=== PATIENT | male | born 1955 | race Caucasian/White ===

== ENCOUNTER 2018-12-24 13:40 | Emergency (ER) | payer BC, SELFPAY ==
[2018-12-24 13:42] VITALS: BP 133/72; PULSE 54; RESP 18; TEMP 36.8; O2SAT 97; BMI 23.6
--- NOTE | 2018-12-24 13:59 | ED.VISSUMM ---
- ER Visit Summary Date of Service: 12/24/18 Chief Complaint: Right long and ring finger distal tip amputation History of Present Illness: The patient is a 63 M [id number]. Tetanus up-to-date. She was cleaning his lawnmower while it was on. And his right hand slipped and got caught on the mower blades. This occurred within the last hour. He states his tetanus is up-to-date. He denies any other injuries. Physical Examination: Older male no acute distress vital signs are stable and afebrile. HEENT exam unremarkable. Lungs clear to auscultation bilaterally. Heart regular rhythm no murmur. Patient moving all 4 extremities. Neurovascularly intact. The distal fingertip of both the right long and ring finger has been amputated. The finger is neurovascular intact. Currently there is no active bleeding. No pulsatile bleeding. No bruising. He has full flexion-extension all digits of the right hand. The joints are intact. He has normal touch sensation. These are avulsion loss of tissue amputation injuries and do not like there is much to repair so at this time. Test Results: Right long and ring finger x-rays shows no fracture and good soft tissue coverage of the bone. No foreign bodies. Read both by myself and the radiologist. Emergency Department Course and Treatment: Tetanus is up-to-date. Both wounds will be cleaned and dressed. Repeat exam patient doing well at 1455. Really nothing to do so at this time. Wound to be cleaned and dressed. He was instructed on wound care. Treatment Plan: Wound care. Disposition: Discharge Impression: Amputation of both the right ring and long finger distal tips. This note was generated with [employer] dictation software. It may contain incorrect words, spelling, and punctuation that were not noted in review of the chart prior to signing ED Disposition - Plan for ED Patient: Disposition: Home or Assisted Living Instructions: FINGER TIP AMPUTATION, Open Treatment Referrals: Rojas Mcclendon DO [Primary Care Provider] - As Needed Additional Instructions: Keep both wounds clean. Apply antibiotic ointment. Watch for any signs of infection. Both of these wounds should heal and long-term look reasonably good. It will take weeks or months.
--- NOTE | 2018-12-24 14:02 | ED.DEP ---
ED Disposition - Plan for ED Patient: Disposition: Home or Assisted Living Instructions: FINGER TIP AMPUTATION, Open Treatment Referrals: Rojas Mcclendon DO [Primary Care Provider] - As Needed Additional Instructions: Keep both wounds clean. Apply antibiotic ointment. Watch for any signs of infection. Both of these wounds should heal and long-term look reasonably good. It will take weeks or months.
[2018-12-24] MEDS: HYDROcodone Bitartrate/Apap 5/325 Tablet PO (14:12)
--- NOTE | 2018-12-24 14:30 | RAD_ITS ---
STUDY: X-RAY - RIGHT HAND, ATTENTION FINGER REASON FOR EXAM: Male, 63 years old. TECHNIQUE: view(s) of the finger were obtained. COMPARISON: None. FINDINGS: There is tiny cystic area noted in the middle phalanx of the ring finger laterally of questionable etiology no fracture seen the joint spaces are preserved Electronically Signed: Maureen Swenson, at 14:59 EDT Tel , Service support , RAD/Finger(s) Min 2 Views
[2018-12-24 15:29] VITALS: RESP 18
== END 2018-12-24 15:31 | disposition home or self-care (01) ==
PROVIDERS: Emergency Provider Emergency Medicine; Family Provider Preventive Medicine Occupational Medicine; PCP Preventive Medicine Occupational Medicine
DX: S61.314A Laceration without foreign body of right ring finger with damage to nail, initial encounter (principal); I10 Essential (primary) hypertension; Z79.899 Other long term (current) drug therapy; W45.8XXA Other foreign body or object entering through skin, initial encounter; Y93.H2 Activity, gardening and landscaping; Y92.007 Garden or yard of unspecified non-institutional (private) residence as the place of occurrence of the external cause; Y99.8 Other external cause status
CPT/HCPCS: 73140; 99283

== ENCOUNTER → 2019-05-02 | Outpatient (CLI) | payer BC, SELFPAY ==
[2019-02-15 15:33] VITALS: BMI 23.6
--- NOTE | 2019-05-02 15:44 | EKG12_ITS ---
Test Reason : PREOP Blood Pressure : / mmHG Vent. Rate : 061 BPM Atrial Rate : 061 BPM P-R Int : 150 ms QRS Dur : 098 ms QT Int : 440 ms P-R-T Axes : 054 043 040 degrees QTc Int : 442 ms Normal sinus rhythm Normal ECG Confirmed by FABIO UPTON ([id number]), editorial writer NURYS CAMERON ([id number]) on 05/08/2019 9:15:42 AM Referred By: Kian Calderón Confirmed By:FABIO UTPON
[2019-05-02 17:13] LABS: Hemoglobin 15.3 g/dL (13.0-16.5); Mean Corp Hgb Conc 33.3 g/dL (32-36); Mean Corpuscular Hgb 30.5 pg (27.0-32.0); Mean Corpuscular Volume 91.6 fL (80-94); Mean Platelet Vol. 9.7 fl (6.2-12.0); Platelet Count 208 K/mm3 (150-450); RBC Distribution Width CV 12.1 % (11.6-14.6); RBC Distribution Width SD 40.4 fl (35.1-43.9); Red Blood Count 5.02 M/mm3 (4.6-6.2); White Blood Count 5.4 K/mm3 (4.4-11.0)
[2019-05-02 17:23] LABS: Anion Gap 6 (5-15); BUN 13 mg/dL (7-18); BUN/Creat Ratio 11.9 RATIO (10-20); Calcium,Total 8.6 mg/dL (8.5-10.1); Chloride 105 mmol/L (98-107); Creatinine, Serum 1.09 mg/dL (0.70-1.30); EST Glomerular Filtration Rate 73 mL/min (>60); Est Glom Filt Rate - Afr Amer 88 mL/min (>60); Glucose 88 mg/dL (74-106); Sodium Level 140 mmol/L (136-145)
== END | disposition home or self-care (01) ==
PROVIDERS: Family Provider Preventive Medicine Occupational Medicine; PCP Preventive Medicine Occupational Medicine; Referring Provider Physician Assistant; Visit Provider Physician Assistant
DX: Z01.810 Encounter for preprocedural cardiovascular examination (principal); E11.9 Type 2 diabetes mellitus without complications
CPT/HCPCS: 36415; 80048; 85027; 93005

== ENCOUNTER 2020-02-21 09:07 | Observation (INO) | payer BC, SELFPAY ==
[2019-02-15 15:33] VITALS: BMI 23.6
[2020-02-21] VITALS (10 sets, daily range): BP systolic 138–184; BP diastolic 70–107; PULSE 48–58; RESP 14–18; TEMP 36.1–36.7; O2SAT 96–100; BMI 25.0; BMI 24.1; BMI 24.2
--- NOTE | 2020-02-21 09:28 | EKG12_ITS ---
Test Reason : Blood Pressure : / mmHG Vent. Rate : 061 BPM Atrial Rate : 061 BPM P-R Int : 156 ms QRS Dur : 094 ms QT Int : 430 ms P-R-T Axes : 055 013 041 degrees QTc Int : 432 ms Sinus rhythm with Premature atrial complexes Otherwise normal ECG Confirmed by FABIO UPTON ([id number]), editor & co founder INGRID LOTT ([id number]) on 02/26/2020 9:37:43 AM Referred By: LARS Confirmed By:FABIO UPTON
--- NOTE | 2020-02-21 09:33 | RAD_ITS ---
STUDY: X-RAY CHEST REASON FOR EXAM: Male, 64 years old. chest pain since 8 am TECHNIQUE: Single AP portable view of the chest. COMPARISON: None. FINDINGS: The lungs are clear and expanded. There is no demonstrated pleural abnormality. Normal size heart. Normal mediastinum and jon. Normal visualized pulmonary arteries. Normal visualized aortic arch and descending thoracic aorta. Normal visualized thoracic spine. There is degenerative osteoarthritis of the bilateral shoulders. There is no demonstrated abnormality of the visualized soft tissue structures of the upper abdomen. RAD/Chest 1 View (Portable) IMPRESSION: Degenerative changes, as described above. No demonstrated acute cardiopulmonary process. Electronically Signed: Stacey Ugalde, at 9:49 EDT Tel , Service support ,
[2020-02-21 09:44] LABS: Absolute Neutrophil Count 3.1 X10^3/uL (2.0-7.7); Basophil# 0.04 X10^3/uL; Basophil% 0.6 % (0-1); Eosinophil# 0.14 X10^3/uL; Eosinophils% 2.2 % (0-5); Hematocrit 45.3 % (40-54); Hemoglobin 15.1 g/dL (13.0-16.5); Lymphocyte % 40.4 % (19-41); Mean Corp Hgb Conc 33.3 g/dL (32-36); Mean Corpuscular Hgb 30.9 pg (27.0-32.0); Mean Corpuscular Volume 92.8 fL (80-94); Mean Platelet Vol. 9.6 fl (6.2-12.0); Monocyte# 0.54 X10^3/uL; Monocyte% 8.4 % (0-10); NRBC Flagged by Analyzer 0 % (0-5); Neutrophil # 3.09 X10^3/uL (2.7-7.7); Neutrophil % 48.1 % (47-70); Platelet Count 212 K/mm3 (150-450); RBC Distribution Width CV 12.6 % (11.6-14.6); RBC Distribution Width SD 42.9 fl (35.1-43.9); Red Blood Count 4.88 M/mm3 (4.6-6.2); White Blood Count 6.4 K/mm3 (4.4-11.0)
[2020-02-21 09:49] LABS: Anion Gap 2 (5-15); BUN 17 mg/dL (7-18); Calcium,Total 8.9 mg/dL (8.5-10.1); Chloride 103 mmol/L (98-107); Creatinine, Serum 1.13 mg/dL (0.70-1.30); EST Glomerular Filtration Rate 70 mL/min (>60); Est Glom Filt Rate - Afr Amer 84 mL/min (>60); Estimated Creatinine Clearance 66.91 ml/min; Glucose 98 mg/dL (74-106); Potassium 3.7 mmol/L (3.5-5.1); Sodium Level 137 mmol/L (136-145)
[2020-02-21] MEDS: Aspirin 81 MG TAB.CHEW 324 MG PO (10:21)
--- NOTE | 2020-02-21 10:29 | ED.DCSUM_ITS ---
- ER Visit Summary Date of Service: 02/21/20 Chief Complaint: Chest pain History of Present Illness: The patient is a 64 M who presents with chest pain that began this morning approximately 1 hour prior to arrival. Patient states the pain is over the right parasternal area and radiates into his back, neck, and jaw. Patient states the pain waxes and wanes. Patient describes the pain is sharp. Patient states nothing makes it better or worse. Patient denies any nausea or vomiting. Patient denies any diaphoresis. Patient denies any shortness of breath or cough. Patient's cardiac risk factors include hypertension. Patient has a family history of father and brother with coronary artery disease but this started in their 60s. Physical Examination: Vital signs are stable except for an elevated blood pressure of 184/107. Patient is afebrile. Patient is in no acute distress. Oral mucosa is pink and moist. Neck is supple. Trachea is midline. There is no JVD noted. Heart was regular rate and rhythm. Lungs are clear and equal bilaterally. Abdomen is soft. Bowel sounds are normal. There is no tenderness. There is no rebound or guarding noted. Skin is warm dry. Cranial nerves II through XII are intact. There are no focal motor or sensory deficits noted. Extremities are intact. There is no calf tenderness or edema. Test Results: EKG shows a normal sinus rhythm with occasional PACs with a rate of 61. There are no acute ST or T wave changes. Portable chest x-ray was obtained. There is no acute cardiopulmonary process. This was interpreted by the radiologist and reviewed by myself. CBC, basic metabolic profile, and troponin were obtained were all essentially within normal limits. Emergency Department Course and Treatment: Patient was given aspirin here. Patient was pain-free here in the emergency department and did not require nitroglycerin. Patient was feeling better. However given the patient's history and his HEART score of 4, I feel the patient should be admitted for further evaluation. Patient states his last stress test was several years ago. Patient understands and is agreeable with the plan. All questions were answered. Case was discussed with the hospitalist. She will admit the patient for observation. Disposition: Admit to hospital Impression: Chest pain This note was generated with [employer] dictation software. It may contain incorrect words, spelling, and punctuation that were not noted in review of the chart prior to signing ED Disposition - Plan for ED Patient: Disposition: Acute Care Hospital [facility] Diagnosis: Chest pain Referrals: Rojas Mcclendon DO [Primary Care Provider] -
--- NOTE | 2020-02-21 11:02 | NURSING ---
DR DANG FOR DR SOLO
--- NOTE | 2020-02-21 11:07 | NURSING ---
PCU CP PAINTSIL
--- NOTE | 2020-02-21 12:28 | EKG12_ITS ---
Test Reason : CP Blood Pressure : / mmHG Vent. Rate : 052 BPM Atrial Rate : 052 BPM P-R Int : 162 ms QRS Dur : 092 ms QT Int : 450 ms P-R-T Axes : 040 015 041 degrees QTc Int : 418 ms Sinus bradycardia Otherwise normal ECG Confirmed by SHELTON KAUR, TRAVIS ([id number]), film editor NURYS CAMERON ([id number]) on 02/28/2020 1:17:25 PM Referred By: RHETT Confirmed By:TRAVIS PEOPLES MD
--- NOTE | 2020-02-21 12:32 | PCM.HP.STD ---
<Odalys Pierce - Last Filed: 02/21/20 12:47> Problem List (1) Chest pain Status: Acute (2) Contact with powered lawnmower as cause of accidental injury at home as place of occurrence Status: Resolved (3) Open wound of right middle finger with damage to nail Status: Resolved (4) Open wound of right ring finger with damage to nail Status: Resolved (5) Subcutaneous mass of back Status: Resolved Comment: mid back in thoracic area History of Present Illness Date of Admission: 02/21/20 Chief Complaint: Chest pain The patient is a 64 year old M who presents emergency room due to chest pain. Patient reports he was at work this morning sitting at his desk when he developed chest pressure which radiated to his back and the right side of his jaw. He states he felt weak. Denies palpitations, lightheadedness, diaphoresis, nausea, shortness of breath. He states he has never had similar symptoms to this in the past. Episode lasted for 2 hours in total and waxed and waned. Patient states his chest pain resolved in the ER after receiving nitro and aspirin. Patient states he is active at baseline and denies any recent chest pain with exertion. He has a past medical history of hypertension. Past Medical History Medical History: Medical History (Last Reviewed 02/15/19 @ 15:32 by Felecia Tse) Asthma J45.909 Kidney stones N20.0 Seasonal allergies J30.2 High blood pressure I10 Allergies CONTRAST DYE Adverse Reaction (Uncoded 02/21/20 09:14) ADVERSE REACTION Home Medications: Ambulatory Orders Medication Instructions Recorded Lisinopril [Zestril] 40 mg PO DAILY 07/25/16 Bisoprolol/Hydrochlorothiazide 1 tab PO DAILY 12/24/18 [Bisoprolol-Hctz 2.5-6.25 mg Tb] Surgical History: - - Right elbow surgery Psychiatric History: No pertinent psych hx Lives: Alone Smoking Status: Never smoker Alcohol: None Drugs: None - *Family History Maternal Family History: Family History (Last Reviewed 02/21/20 @ 12:42 by COLTEN Chen) Mother Anemia CVA (cerebral vascular accident) Father Diabetes Heart disease High cholesterol CVA (cerebral vascular accident) Paternal Family History: Family History (Last Reviewed 02/21/20 @ 12:42 by Odalys Stan, RADIO RIGGER-C) Mother Anemia CVA (cerebral vascular accident) Father Diabetes Heart disease High cholesterol CVA (cerebral vascular accident) Review of Systems Constitutional: Denies: Chills, Fever, Weight Change HEENT: Denies: Head Aches, Sinus Congestion, Sinus Drainage Cardiovascular: Reports: Chest Pain Respiratory: Denies: Cough, Shortness of breath at rest, Sputum production Gastrointestinal: Denies: Abdominal Pain, Nausea, Vomiting Genitourinary: Denies: Dysuria Musculoskeletal: Denies: Joint Pain, Joint Tenderness Skin: Denies: Rash, Wounds Neurological: Denies: Numbness, Tingling, Focal weakness Psychiatric: Denies: Anxiety, Depression, Homicidal Ideations, Suicidal Ideations Hematologic/ Lymphatic: Denies: Easy Bruising, Easy Bleeding VTE Information - Inpt Only VTE Present on Admission: No VTE Mechan Device Prophylaxis: None VTE Pharm Prophylaxis ordered?: No Reason prophylaxis not ordered:: Treatment Not Indicated Patient Problems: Active and Suspected Problems (Last Reviewed 02/15/19 @ 15:32 by Felecia Tse) Chest pain (Acute) - Physical Exam Vitals/I&O's: Vital Signs Temp Pulse Resp BP Pulse Ox 98.1 F 52 L 14 144/97 H 97 02/21/20 12:18 02/21/20 12:18 02/21/20 12:18 02/21/20 12:18 02/21/20 12:18 Oxygen Delivery Method Room Air Weight: 163 lb 2.273 oz Body Mass Index (BMI) 24.1 General: Alert, Oriented x3, Cooperative HEENT: Atraumatic, PERRLA, EOMI, Normocephalic Neck: Supple, No JVD, Negative Carotid Bruits Lungs: Clear to auscultation, Normal air movement Cardiovascular: Regular rate, No murmurs Abdomen: Bowel Sounds Present, Soft, Non Tender Extremities: No edema, Capillary Refill Less than 3 Seconds Skin: No rashes, No breakdown Musculoskeletal: No Tenderness to Palpation of Joints or Extremities Neurological: Cranial nerves II-XII grossly intact, Neuro grossly intact Psych/Mental Status: Normal Affect, Appropriate Laboratory Results 02/21/20 09:15: WBC 6.4, RBC 4.88, Hgb 15.1, Hct 45.3, MCV 92.8, MCH 30.9, MCHC 33.3, RDW Std Deviation 42.9, RDW Coeff of Samson 12.6, Plt Count 212, MPV 9.6, Immature Gran % (Auto) 0.300, Neut % (Auto) 48.1, Lymph % (Auto) 40.4, [place] % (Auto) 8.4, Eos % (Auto) 2.2, Baso % (Auto) 0.6, Absolute Neuts (auto) 3.1, Absolute Lymphs (auto) 2.60, Nucleated RBC % 0 02/21/20 09:15: Sodium 137, Potassium 3.7, Chloride 103, Carbon Dioxide 32.0, Anion Gap 2 L, BUN 17, Creatinine 1.13, Estim Creat Clear Calc 66.91, Est GFR (MDRD) Af Amer 84, Est GFR (MDRD) Non-Af 70, BUN/Creatinine Ratio 15.0, Glucose 98, Calcium 8.9, Troponin I < 0.015 Current Medications Bisoprolol Fumarate (Zebeta) 2.5 mg PO DAILY [facility] Hydrochlorothiazide () 6.25 mg PO DAILY [facility] Lisinopril (Zestril) 40 mg PO DAILY [facility] Nitroglycerin (Nitrostat) 0.4 mg SUBLINGUAL Q5M PRN PRN Reason: CARDIAC/CHEST PAIN Sodium Chloride () 10 - 40 ml IV UD PRN PRN Reason: SALINE FLUSH Assessment/Plan All Active Problems (Last Reviewed 02/15/19 @ 15:32 by Felecia Tse) Chest pain (Acute) Contact with powered lawnmower as cause of accidental injury at home as place of occurrence (Resolved) Open wound of right middle finger with damage to nail (Resolved) Open wound of right ring finger with damage to nail (Resolved) Subcutaneous mass of back (Resolved) 1. Chest pain-EKG without ST-T changes. Initial troponin negative. Trend enzymes. Check a lipid profile in a.m. Continue baby aspirin. Stress test in a.m. 2. Hypertension-elevated on admission, now improved. Continue lisinopril, bisoprolol/HCTZ regimen. DVT prophylaxis-not indicated, low risk. This patient was seen by COLTEN Chen under the supervision of Dr. Gaspar. <Monik Gaspar - Last Filed: 02/21/20 16:39> History of Present Illness The patient is a 64 year old M [] Past Medical History Medical History: Medical History (Last Reviewed 02/15/19 @ 15:32 by Felecia Tse) Asthma J45.909 Kidney stones N20.0 Seasonal allergies J30.2 High blood pressure I10 Allergies CONTRAST DYE Adverse Reaction (Uncoded 02/21/20 09:14) ADVERSE REACTION - *Family History Maternal Family History: Family History (Last Reviewed 02/21/20 @ 12:42 by COLTEN Chen) Mother Anemia CVA (cerebral vascular accident) Father Diabetes Heart disease High cholesterol CVA (cerebral vascular accident) Paternal Family History: Family History (Last Reviewed 02/21/20 @ 12:42 by COLTEN Chen) Mother Anemia CVA (cerebral vascular accident) Father Diabetes Heart disease High cholesterol CVA (cerebral vascular accident) - Physical Exam Vitals/I&O's: Vital Signs Temp Pulse Resp BP Pulse Ox 98.1 F 54 L 14 144/97 H 97 02/21/20 12:18 02/21/20 12:52 02/21/20 12:18 02/21/20 12:18 02/21/20 12:18 Oxygen Delivery Method Room Air Weight: 74 kg Body Mass Index (BMI) 24.1 Laboratory Results 02/21/20 09:15: WBC 6.4, RBC 4.88, Hgb 15.1, Hct 45.3, MCV 92.8, MCH 30.9, MCHC 33.3, RDW Std Deviation 42.9, RDW Coeff of Samson 12.6, Plt Count 212, MPV 9.6, Immature Gran % (Auto) 0.300, Neut % (Auto) 48.1, Lymph % (Auto) 40.4, [place] % (Auto) 8.4, Eos % (Auto) 2.2, Baso % (Auto) 0.6, Absolute Neuts (auto) 3.1, Absolute Lymphs (auto) 2.60, Nucleated RBC % 0 02/21/20 09:15: Sodium 137, Potassium 3.7, Chloride 103, Carbon Dioxide 32.0, Anion Gap 2 L, BUN 17, Creatinine 1.13, Estim Creat Clear Calc 66.91, Est GFR (MDRD) Af Amer 84, Est GFR (MDRD) Non-Af 70, BUN/Creatinine Ratio 15.0, Glucose 98, Calcium 8.9, Troponin I < 0.015 02/21/20 12:29: Troponin I < 0.015 02/21/20 15:40: Troponin I Pending Current Medications Bisoprolol Fumarate (Zebeta) 2.5 mg PO DAILY [facility] Hydrochlorothiazide () 6.25 mg PO DAILY [facility] Lisinopril (Zestril) 40 mg PO DAILY [facility] Nitroglycerin (Nitrostat) 0.4 mg SUBLINGUAL Q5M PRN PRN Reason: CARDIAC/CHEST PAIN Sodium Chloride () 10 - 40 ml IV UD PRN PRN Reason: SALINE FLUSH Assessment/Plan This patient was seen in conjunction with Odalys Pierce NP. I have independently interviewed and examined the patient and reviewed pertinent historical, laboratory, and other data. Please refer to her note for patient's presentation, findings, and recommendations. 64-year-old male with past medical history of hypertension who comes in with complaints of substernal chest pain that radiates to the right side of the neck. Patient was at work when he had substernal chest pain. Denies having any chest pain in the past. This lasted for about 2 hours. This was described as dull. It was not associated with dizziness or diaphoresis or nausea or vomiting. Vitals in the ED were stable. Vitals were stable. Troponins were negative. EKG showed no acute ST-T changes. Physical Exam: Gen: Comfortable, not pale, not jaundiced, alert oriented x3 CVS:HS I +II, regular, no murmurs RESP: CTA GI: BS present and normal, nontender, no palpable organs EXT:No edema Labs reviewed: ASSESSMENT: 1. Chest pain 2. Hypertension Meds reviewed Plan: We will trend troponins, Check lipid profile, HbA1c in a.m. Stress test in a.m. Continue on lisinopril, bisoprolol and hydrochlorothiazide OBSV E&M: 89649 Initial observation care L3
[2020-02-22 02:54] VITALS: PULSE 46
[2020-02-22 05:00] VITALS: BP 140/76; PULSE 54; RESP 16; TEMP 37.2; O2SAT 96
[2020-02-22] MEDS: Lisinopril 40 MG Tablet PO (05:09)
[2020-02-22 07:00] VITALS: PULSE 53
[2020-02-22 07:01] LABS: Cholesterol 239 mg/dL (200); High Density Lipoprotein 48 mg/dL; Triglycerides 110 mg/dL; Very Low Density Lipoprotein 22 mg/dL (5-40)
--- NOTE | 2020-02-22 08:50 | PCM.PN.HOSP ---
Patient Problems: Active and Suspected Problems (Last Reviewed 02/15/19 @ 15:32 by Felecia Tse) Chest pain (Acute) Vitals/I&O's: Vital Signs Temp Pulse Resp BP Pulse Ox 98.9 F 53 L 16 140/76 H 96 02/22/20 05:00 02/22/20 07:00 02/22/20 05:00 02/22/20 05:00 02/22/20 05:00 Oxygen Delivery Method Room Air Weight: 74 kg Body Mass Index (BMI) 24.1 Intake and Output for Last 24 Hours 02/20/20 02/21/20 02/22/20 23:59 23:59 23:59 Intake Total 480 / 480 Balance 480 / 480 Laboratory Results 02/21/20 09:15: WBC 6.4, RBC 4.88, Hgb 15.1, Hct 45.3, MCV 92.8, MCH 30.9, MCHC 33.3, RDW Std Deviation 42.9, RDW Coeff of Samson 12.6, Plt Count 212, MPV 9.6, Immature Gran % (Auto) 0.300, Neut % (Auto) 48.1, Lymph % (Auto) 40.4, Stark % (Auto) 8.4, Eos % (Auto) 2.2, Baso % (Auto) 0.6, Absolute Neuts (auto) 3.1, Absolute Lymphs (auto) 2.60, Nucleated RBC % 0 02/21/20 09:15: Sodium 137, Potassium 3.7, Chloride 103, Carbon Dioxide 32.0, Anion Gap 2 L, BUN 17, Creatinine 1.13, Estim Creat Clear Calc 66.91, Est GFR (MDRD) Af Amer 84, Est GFR (MDRD) Non-Af 70, BUN/Creatinine Ratio 15.0, Glucose 98, Calcium 8.9, Troponin I < 0.015 02/21/20 12:29: Troponin I < 0.015 02/21/20 15:40: Troponin I < 0.015 02/22/20 06:00: Triglycerides 110, Cholesterol 239 H, LDL Cholesterol 169 H, VLDL Cholesterol 22, HDL Cholesterol 48 Current Medications Bisoprolol Fumarate (Zebeta) 2.5 mg PO DAILY [facility] Hydrochlorothiazide () 6.25 mg PO DAILY [facility] Lisinopril (Zestril) 40 mg PO DAILY [facility] Last Admin: 02/22/20 05:09 Dose: 40 mg Documented by: Nitroglycerin (Nitrostat) 0.4 mg SUBLINGUAL Q5M PRN PRN Reason: CARDIAC/CHEST PAIN Sodium Chloride () 10 - 40 ml IV UD PRN PRN Reason: SALINE FLUSH STROKE Vital Signs/Narrative: Vital Signs Temp Pulse Resp BP Pulse Ox 02/22/20 07:00 53 L 02/22/20 05:00 98.9 F 54 L 16 140/76 H 96 Medical Necessity - Tobacco Use Smoking Status: Never smoker Assessment/Plan All Active Problems (Last Reviewed 02/15/19 @ 15:32 by Felecia Tse) Chest pain (Acute) Contact with powered lawnmower as cause of accidental injury at home as place of occurrence (Resolved) Open wound of right middle finger with damage to nail (Resolved) Open wound of right ring finger with damage to nail (Resolved) Subcutaneous mass of back (Resolved) This patient was seen in conjunction with Odalys Pierce NP. I have independently interviewed and examined the patient and reviewed pertinent historical, laboratory, and other data. Please refer to her note for patient's presentation, findings, and recommendations. 64-year-old male with past medical history of hypertension who comes in with complaints of substernal chest pain that radiates to the right side of the neck. Patient was at work when he had substernal chest pain. Denies having any chest pain in the past. This lasted for about 2 hours. This was described as dull. It was not associated with dizziness or diaphoresis or nausea or vomiting. Vitals in the ED were stable. Vitals were stable. Troponins were negative. EKG showed no acute ST-T changes. Physical Exam: Gen: Comfortable, not pale, not jaundiced, alert oriented x3 CVS:HS I +II, regular, no murmurs RESP: CTA GI: BS present and normal, nontender, no palpable organs EXT:No edema Labs reviewed: ASSESSMENT: 1. Chest pain 2. Hypertension Meds reviewed Plan: We will trend troponins, Check lipid profile, HbA1c in a.m. Stress test in a.m. Continue on lisinopril, bisoprolol and hydrochlorothiazide Inpatient E&M: 52773 Subs Hosp L2
[2020-02-22 09:23] LABS: Hemoglobin A1c 5.9 % (3.8-5.6)
[2020-02-22 09:53] VITALS: BP 124/85; PULSE 60; RESP 16; TEMP 36.2; O2SAT 98
[2020-02-22] MEDS: Bisoprolol Fumarate 5 MG Tablet 2.5 MG PO (10:01)
[2020-02-22] MEDS: hydroCHLOROthiazide 6.25mg TAB 6.25 MG PO (10:01)
--- NOTE | 2020-02-22 12:38 | STRESSREP_ITS ---
Stress Test Report Date: 02/22/2020 Procedure: Exercise tolerance test/imaging study Indications: Chest pain Consent: Per the patient Procedure: The patient exercised on a Sabino protocol for 9 minutes achieving a peak heart rate of 142 bpm (90 % predicted maximal heart rate) with a peak blood pressure 174/88 mmHg and a peak MET capacity of 10.1 METs. The baseline ECG demonstrated normal sinus rhythm. The peak exercise ECG demonstrated sinus tachycardia with no significant ST-T changes. EKG during recovery revealed no significant ischemic changes [There were no significant cardiac dysrhythmias pretest, during exercise, or recovery]. The functional capacity was considered normal for age. There was [no complaint of chest discomfort during exercise or recovery]. The examination was discontinued secondary to achieving target heart rate. Impression: 1. Technically adequate (percent predicted maximal heart rate greater than 85%) exercise tolerance test 2. Stress test is negative for exercise-induced EKG changes of ischemia 3. The test test is negative for exercise-induced chest pain 4. Functional capacity is normal for age 5. Nuclear images pending Myocardial perfusion imaging study: Technique: The patient was injected with 11 mCi of technetium 99m Cardiolite and subsequently rest SPECT Cardiolite nuclear imaging was obtained in the horizontal long, vertical long, and short axis views. The patient exercised on a Sabino protocol. Please see above for details. The patient was injected with 36 mCi of technetium 99m Cardiolite and subsequently stress SPECT Cardiolite nuclear imaging was obtained in the horizontal long, vertical long, and short axis views. A gated Cardiolite study at peak stress was obtained. Interpretation: Rest and stress SPECT Cardiolite nuclear imaging status post realignment, normalization, and attenuation correction, demonstrates no significant reversible or fixed defects suggestive of ischemia or infarction. The gated Cardiolite study demonstrates no significant regional wall motion abnormalities. The reported LVEF is greater than 70 %. Impression: 1. There is no evidence of significant ischemia or infarction. 2. The gated Cardiolite study reports an LVEF of greater than 70 %. This note was generated with [employer] software. It may contain incorrect words, spelling, and punctuation that were not noted in checking the note before signing.
--- NOTE | 2020-02-22 12:55 | DCINST_ITS ---
- Discharge Diagnoses Current Active Problems: Current Active and Chronic Problems (Last Reviewed 02/15/19 @ 15:32 by Felecia Tse) Chest pain (Acute) You will use the following diet at home:: No restrictions Your food should be the consistency of: Regular Your liquids should be the consistency of: Regular/Thin Discharge Activity: Return to Normal Activity Allergies/Adverse Reactions: Allergies CONTRAST DYE Adverse Reaction (Uncoded 02/21/20 09:14) ADVERSE REACTION Medications to take at Discharge Lisinopril [Zestril] 40 mg PO DAILY 07/25/16 Bisoprolol/Hydrochlorothiazide [Bisoprolol-Hctz 2.5-6.25 mg Tb] 1 tab PO DAILY 12/24/18 Primary Care Physician: Rojas Mcclendon DO [Primary Care Provider] - Please follow up with your Primary Care Physician in: 1-2 weeks Test Results: Test results from this visit will be discussed in further detail at your follow- up appointment, if applicable. Proposed Discharge Date: 02/22/20
--- NOTE | 2020-02-22 12:57 | PCM.DC.SUM ---
<Matthew Benavidez - Last Filed: 02/22/20 12:57> Discharge Date and Diagnosis Date of Admission: 02/21/20 Date of Discharge: 02/22/20 - Primary Discharge Diagnosis Acute Problems: Active Problems (Last Reviewed 02/15/19 @ 15:32 by Felecia Tse) Chest pain - musculoskeletal HTN Hospital Course and Treatment Imaging Results: RAD/Chest 1 View (Portable) IMPRESSION: Degenerative changes, as described above. No demonstrated acute cardiopulmonary process. Stress test: Interpretation: Rest and stress SPECT Cardiolite nuclear imaging status post realignment, normalization, and attenuation correction, demonstrates no significant reversible or fixed defects suggestive of ischemia or infarction. The gated Cardiolite study demonstrates no significant regional wall motion abnormalities. The reported LVEF is greater than 70 %. Impression: 1. There is no evidence of significant ischemia or infarction. 2. The gated Cardiolite study reports an LVEF of greater than 70 %. Operations: None Procedures: Stress test Summary of Care Provided: Hospital Course: The patient is a 64 year old M with pmhx of HTN who presented to the ER with c/o chest pain. This started when he was sitting and was described as a chest pressure radiating into his back and right jaw. This resolved prior to admission and never returned. In the ER he had neg trop, neg cxr, and negative EKG. He was admitted for CP workup. Troponin was negative x3 and stress test was negative the following morning. He no no return of his CP. He was discharged home in stable condition. He will need follow up with his PCP in 1-2 weeks. This patient was seen by Matthew Benavidez PA-C under the supervision of Dr. Gaspar. [] - Physical Exam Vitals/I&O's: Vital Signs Temp Pulse Resp BP Pulse Ox 97.2 F L 60 16 124/85 H 98 02/22/20 09:53 02/22/20 09:53 02/22/20 09:53 02/22/20 09:53 02/22/20 09:53 Oxygen Delivery Method Room Air Weight: 163 lb 2.273 oz Body Mass Index (BMI) 24.1 Intake and Output for Last 24 Hours 02/20/20 02/21/20 02/22/20 23:59 23:59 23:59 Intake Total 480 / 480 240 / 240 Balance 480 / 480 240 / 240 General: Alert, Oriented x3, Cooperative HEENT: Atraumatic, PERRLA, EOMI, Normocephalic Neck: Supple, No JVD, Negative Carotid Bruits Lungs: Clear to auscultation, Normal air movement Cardiovascular: Regular rate, No murmurs Abdomen: Bowel Sounds Present, Soft, Non Tender Extremities: No edema, Capillary Refill Less than 3 Seconds Skin: No rashes, No breakdown Musculoskeletal: No Tenderness to Palpation of Joints or Extremities Neurological: Cranial nerves II-XII grossly intact Psych/Mental Status: Normal Affect, Appropriate, Alert and oriented to time, place, person, mood and affect Laboratory Results 02/21/20 12:29: Troponin I < 0.015 02/21/20 15:40: Troponin I < 0.015 02/22/20 06:00: Triglycerides 110, Cholesterol 239 H, LDL Cholesterol 169 H, VLDL Cholesterol 22, HDL Cholesterol 48 02/22/20 06:00: Hemoglobin A1c 5.9 H Current Medications Bisoprolol Fumarate (Zebeta) 2.5 mg PO DAILY [facility] Last Admin: 02/22/20 10:01 Dose: 2.5 mg Documented by: Hydrochlorothiazide () 6.25 mg PO DAILY [facility] Last Admin: 02/22/20 10:01 Dose: 6.25 mg Documented by: Lisinopril (Zestril) 40 mg PO DAILY [facility] Last Admin: 02/22/20 05:09 Dose: 40 mg Documented by: Nitroglycerin (Nitrostat) 0.4 mg SUBLINGUAL Q5M PRN PRN Reason: CARDIAC/CHEST PAIN Sodium Chloride () 10 - 40 ml IV UD PRN PRN Reason: SALINE FLUSH Discharge Diet: Low fat/ Low Cholesterol, 2000 mg Sodium Diet Discharge Activity: Return to Normal Activity Home Medications: Medications to take at Discharge Lisinopril [Zestril] 40 mg PO DAILY 07/25/16 Bisoprolol/Hydrochlorothiazide [Bisoprolol-Hctz 2.5-6.25 mg Tb] 1 tab PO DAILY 12/24/18 Atorvastatin Calcium [Lipitor] 40 mg PO QHS 30 Days #30 tab 02/22/20 Following Prescriptions Were Given to Patient: Atorvastatin Calcium [Lipitor] 40 mg PO QHS 30 Days #30 tab Transmission Status: Received by [facility]/pharmacy #[id number] Primary Care Physician: Rojas Mcclendon DO [Primary Care Provider] - Please follow up with your Primary Care Physician in: 1-2 weeks Disposition: Home Minutes spent on discharge:: 35 Patient Condition:: Stable Medical Necessity - Tobacco Use Smoking Status: Never smoker Meaningful Use Info Meaningful Use Diagnoses (Choose all that apply): None applicable <Monik Gaspar - Last Filed: 02/22/20 14:21> Hospital Course and Treatment Summary of Care Provided: This patient was seen in conjunction with POPPY Russell. I have independently interviewed and examined the patient and reviewed pertinent historical, laboratory, and other data. Please refer to POPPY Russell note for his patient's presentation, findings, and recommendations. I have reviewed and his note and concur with his documentation 64-year-old male with past medical history of hypertension admitted with substernal chest pain that radiated to the right side of the neck and jaw. Chest pain lasted for about 2 hours. Resolved by time go to the ED. His work-up was negative. Troponins were negative. He was admitted to telemetry floor with no acute event. Stress test in the morning was negative. Further work-up showed HbA1c of 5.9, he was advised to modify his lifestyle and follow a Mediterranean diet/low-fat/low-salt, moderate exercises. His lipid profile was also elevated. He was prescribed atorvastatin and would need to repeat his lipid profile in 6 weeks. He voiced understanding of all the instructions. On the day of discharge, patient was seen and examined. Denied any new complaints. Physical Exam: Gen: Comfortable, not pale, not jaundiced CVS:HS I +II, regular, no murmurs RESP: CTA GI: BS present and normal, soft, nontender, no palpable organs EXT:No edema - Physical Exam Vitals/I&O's: Vital Signs Temp Pulse Resp BP Pulse Ox 97.2 F L 60 16 124/85 H 98 02/22/20 09:53 02/22/20 09:53 02/22/20 09:53 02/22/20 09:53 02/22/20 09:53 Oxygen Delivery Method Room Air Weight: 74 kg Body Mass Index (BMI) 24.1 Intake and Output for Last 24 Hours 02/20/20 02/21/20 02/22/20 23:59 23:59 23:59 Intake Total 480 / 480 240 / 240 Balance 480 / 480 240 / 240 Laboratory Results 02/21/20 15:40: Troponin I < 0.015 02/22/20 06:00: Triglycerides 110, Cholesterol 239 H, LDL Cholesterol 169 H, VLDL Cholesterol 22, HDL Cholesterol 48 02/22/20 06:00: Hemoglobin A1c 5.9 H OBSV E&M: [id number] Observation care discharge
--- NOTE | 2020-02-22 14:23 | PHA.DC.MR ---
Pharmacy Service has performed discharge medication reconciliation for this patient. Attempted to senior vice president & general counsel patient, but pt had already been discharged off floor at time of attempted counseling. Medication reconciliation was completed prior to discharge off unit. The patient's discharge medication list was reviewed for discrepancies and discrepancies were resolved. Home Medications Lisinopril [Zestril] 40 mg PO DAILY 07/25/16 Bisoprolol/Hydrochlorothiazide [Bisoprolol-Hctz 2.5-6.25 mg Tb] 1 tab PO DAILY 12/24/18 Atorvastatin Calcium [Lipitor] 40 mg PO QHS 30 Days #30 tab 02/22/20
== END 2020-02-22 12:55 | disposition home or self-care (01) ==
LOC: ED 10:33 → PCU 11:18
PROVIDERS: Nurse Practitioner Family; Admitting Provider Internal Medicine; Emergency Provider Emergency Medicine; PCP Preventive Medicine Occupational Medicine; Visit Provider Internal Medicine
DX: R07.89 Other chest pain (principal); I10 Essential (primary) hypertension; M54.2 Cervicalgia; M54.9 Dorsalgia, unspecified; R68.84 Jaw pain; Z79.899 Other long term (current) drug therapy; Z82.49 Family history of ischemic heart disease and other diseases of the circulatory system; J45.909 Unspecified asthma, uncomplicated; I49.1 Atrial premature depolarization
CPT/HCPCS: 36415; 71045; 78452; 80048; 80061; 83036; 84484; 85025; 93005; 93017; 97802; 99218; 99285; A9500; A4216; G0378

== ENCOUNTER → 2022-09-03 | Outpatient (CLI) | payer MEDICARE, SELFPAY ==
--- NOTE | 2022-09-03 13:11 | CT_ITS ---
STUDY: CT CHEST WITHOUT CONTRAST REASON FOR EXAM: Male, 66 years old. Lung Nodule RADIATION DOSAGE (If Supplied By Facility): CTDIvol = ( 9.78 ) mGy, DLP = ( 391.04 ) mGycm TECHNIQUE: Transaxial imaging was performed without the administration of intravenous contrast material. Multiplanar coronal and sagittal images were reformatted. Individualized dose optimization techniques were used for this CT. COMPARISON: Comparison is made with prior examination dated July 25, 2016. FINDINGS: CHEST The lungs are normal. There is no demonstrated pleural abnormality. Normal heart and pericardium. No evidence of coronary calcification. Mild degree of pericardial thickening anteriorly. There are multiple small lymph nodes within the mediastinum, which are normal in size and morphology most compatible with reactive lymph hyperplasia. Normal hilar regions. Normal unenhanced pulmonary arteries. There is atherosclerotic calcification of the aortic arch with tortuosity and elongation of the aortic arch and descending thoracic aorta. There are multi-level degenerative changes of the thoracic spine. There is no demonstrated abnormality of the visualized upper abdomen. CT/Chest without Contrast IMPRESSION: No pulmonary nodule is seen. Mild degree of anterior pericardial thickening. Electronically Signed: Norm Barrett MD at 12:34 EST ,
== END | disposition home or self-care (01) ==
LOC: CT 12:53
PROVIDERS: PCP Student in an Organized Health Care Education/Training Program; Referring Provider Internal Medicine Critical Care Medicine; Visit Provider Internal Medicine Critical Care Medicine
DX: R91.1 Solitary pulmonary nodule (principal)
CPT/HCPCS: 71250

== ENCOUNTER → 2022-10-26 | Outpatient (CLI) | payer MEDICARE, SELFPAY ==
--- NOTE | 2022-10-26 12:54 | ECHOD_ITS ---
Reason For Study: Pericardial Disease Procedure This was a 2D Doppler, Color Flow transthoracic echocardiogram. Exam performed in department. Left Ventricle Normal LV size. Left ventricular systolic function is normal. The left ventricular ejection fraction is 60 %. Normal diastology for age. No regional wall motion abnormalities noted. Right Ventricle Normal RV size. Normal systolic function. Atria The left and right atria are normal. Mitral Valve The mitral valve is structurally normal. No prolapse or stenosis seen. No mitral valve insufficiency. Tricuspid Valve Normal tricuspid valve. Trivial tricuspid valve insufficiency. Unable to estimate RV systolic pressure due to insufficient tricuspid regurgitant envelope. Aortic Valve Trisinus/trileaflet aortic valve. No aortic valve insufficiency. Pulmonic Valve The pulmonic valve is not well visualized. Trivial pulmonic valve insufficiency. Great Vessels Normal aortic root. Pericardium/Pleural No pericardial effusion. MMode/2D Measurements & Calculations LVIDd: 4.5 cm IVSd: 0.92 cm Ao root diam: 3.3 cm LVIDs: 2.9 cm LVPWd: 1.1 cm LA dimension: 3.0 cm RVDd: 3.4 cm FS: 36.6 % LAV(MOD-bp): 34.4 ml LA A4 area: 16.4 cm2 RA A4 area: 8.6 cm2 LAV(MOD-bp) Indexed: 17.3 ml/m2 LAV(MOD-sp2): 41.8 ml LAV(MOD-sp4): 28.6 ml Time Measurements MV dec time: 0.23 sec Doppler Measurements & Calculations MV E max varun: 61.4 cm/sec Lat Peak E' Varun: 7.5 cm/sec Med Peak E' Varun: 7.8 cm/sec MV A max varun: 63.1 cm/sec E/E' lat: 8.2 E/E' med: 7.9 MV E/A: 0.97 MV V2 max: 75.9 cm/sec MV P1/2t max varun: 77.2 cm/sec Ao V2 max: 126.7 cm/sec MV max P.3 mmHg MV P1/2t: 81.8 msec Ao max P.4 mmHg MV V2 mean: 41.0 cm/sec MV dec slope: 276.4 cm/sec2 Ao V2 mean: 89.5 cm/sec MV mean P.79 mmHg MVA(P1/2t): 2.7 cm2 Ao mean P.7 mmHg MV V2 VTI: 23.3 cm Ao V2 VTI: 26.2 cm LV V1 max: 100.3 cm/sec PA V2 max: 95.7 cm/sec LV V1 max P.0 mmHg ECHO/Echo Complete Interpretation Summary The left ventricular ejection fraction is 60 %. No regional wall motion abnormalities noted. Trivial tricuspid valve insufficiency. Ordering Physician: Glen Garner Referring Physician: Glen Garner Performed By: Mati Rodríguez RCS
== END | disposition home or self-care (01) ==
PROVIDERS: PCP Student in an Organized Health Care Education/Training Program; Referring Provider Internal Medicine Cardiovascular Disease; Visit Provider Internal Medicine Cardiovascular Disease
DX: R07.9 Chest pain, unspecified (principal); I31.9 Disease of pericardium, unspecified
CPT/HCPCS: 93306